=== PATIENT | female | born 1950 | race Caucasian/White ===

== ENCOUNTER 2021-11-07 08:57 | Emergency (ER) | payer OTHER ==
[~2021-11-07] VITALS: Ht 162.6 cm; Wt 95.3 kg
[2021-11-07 09:09] VITALS: BP 151/77
--- NOTE | 2021-11-07 09:15 | NUR ---
AT BEDSIDE FOR EVAL
[2021-11-07] MEDS ORDERED: HYDROCODONE/APAP 5/325MG TABLET PO ONE (09:30)
--- NOTE | 2021-11-07 09:30 | NUR ---
DIRECTOR OF CREATIVE SERVICES AT BEDSIDE FOR XRAY.
[2021-11-07] MEDS ORDERED: HYDROCODONE/APAP 5/325MG TABLET ONE (09:31)
--- NOTE | 2021-11-07 11:18 | NUR ---
Patient discharged to home in stable condition. Written and verbal after care instructions given. Patient verbalizes understanding of instruction.
== END 2021-11-07 11:18 | disposition home or self-care (01) ==
LOC: ER 09:00
DX: R07.89 Other chest pain (principal); M06.9 Rheumatoid arthritis, unspecified; E03.9 Hypothyroidism, unspecified; M79.7 Fibromyalgia; I10 Essential (primary) hypertension; K21.9 Gastro-esophageal reflux disease without esophagitis; Z90.49 Acquired absence of other specified parts of digestive tract; Z98.890 Other specified postprocedural states; Z88.2 Allergy status to sulfonamides
CPT/HCPCS: 71100-TC

== ENCOUNTER 2022-01-21 00:48 | Inpatient (IN) | payer OTHER ==
[~2022-01-21] VITALS: Ht 162.6 cm; Wt 97.5 kg
--- NOTE | 2022-01-21 00:58 | NUR ---
PT [id number]. C/O HAD SYNCOPAL EPISODE TODAY WHERE SHE FAINTED. PLACED IN BED 3 ON MONITOR AND PULSE OX. PT CONTINUOUSLY ASKING TO USE THE RESTROOM.
--- NOTE | 2022-01-21 01:33 | NUR ---
PT IN THE RESTROOM REQUESTING FOR MORE TIME.
[2022-01-21] MEDS ORDERED: MORPHINE SULFATE INJ 4 MG/ML DISP.SYRIN ONE (01:55)
[2022-01-21] MEDS ORDERED: ONDANSETRON HCL/PF 4 MG/2 ML VIAL ONE (01:55)
[2022-01-21] MEDS ORDERED: IV NS 0.9% 1,000 ML IV ONE (02:00)
[2022-01-21] MEDS ORDERED: ONDANSETRON HCL/PF 4 MG/2 ML VIAL IVP ONE (02:00)
[2022-01-21] MEDS ORDERED: MORPHINE SULFATE INJ 2 MG/ML DISP.SYRIN IV ONE (02:00)
--- NOTE | 2022-01-21 02:02 | NUR ---
PT BROUGHT TO CT
[2022-01-21 02:12] LABS: BASOPHILS % (AUTO) 0.2 % (0.0-2.0); HEMATOCRIT 43 % (33-45); HEMOGLOBIN 13.5 g/dL (11.5-14.8); LYMPHOCYTES # (AUTO) 1.3 K/uL (0.8-4.8); LYMPHOCYTES % (AUTO) 5.7 % (20.0-44.0); MEAN CORPUSCULAR HGB CONC 31 g/dl (31.0-36.0); MEAN CORPUSCULAR VOLUME 87 fL (82-100); MONOCYTES # (AUTO) 0.8 K/uL (0.1-1.30); MONOCYTES % (AUTO) 3.5 % (2.0-12.0); NEUTROPHILS # (AUTO) 20.1 K/uL (1.8-8.9); NEUTROPHILS % (AUTO) 90.6 % (43.0-81.0); PLATELET COUNT (AUTO) 593 K/uL (150-450); RED BLOOD CELL COUNT(AUTO) 4.95 MIL/uL (4.0-5.2); WHITE BLOOD COUNT (AUTO) 22.2 K/uL (4.3-11.0)
[2022-01-21 02:29] LABS: ALANINE AMINOTRANSFERASE 21 U/L (12-78); ALBUMIN 4.2 g/dL (3.4-5.0); ALKALINE PHOSPHATASE 151 U/L (46-116); ASPARTATE AMINOTRANSFERASE 18 U/L (15-37); BILIRUBIN,DIRECT 0.1 mg/dL (0.0-0.2); BILIRUBIN,TOTAL 0.4 mg/dL (0.2-1.0); CALCIUM, SERUM 9.8 mg/dL (8.5-10.1); CARBON DIOXIDE 24 mmol/L (21-32); CHLORIDE 100 mmol/L (98-107); CREATININE 1.9 mg/dL (0.6-1.3); GLUCOSE 189 mg/dL (74-106); POTASSIUM 4.3 mmol/L (3.5-5.1); SODIUM SERUM 138 mmol/L (136-145); TOTAL PROTEIN, SERUM 7.9 g/dL (6.4-8.2); UREA NITROGEN, BLOOD 31 mg/dL (7-18)
--- NOTE | 2022-01-21 02:44 | NUR ---
LACTIC ACID 4.0
[2022-01-21] MEDS ORDERED: CEFEPIME 1 GM VIAL ONE (03:12)
[2022-01-21] MEDS ORDERED: VANCOMYCIN 1 GM VIAL ONE (03:15)
[2022-01-21] MEDS ORDERED: IV NS 0.9% 1,000 ML BAG IV ONE (03:30)
[2022-01-21] MEDS ORDERED: VANCOMYCIN 1 GM in IV D5W 250 ML IV ONE (03:30)
[2022-01-21] MEDS ORDERED: CEFEPIME 1 GM in IV D5W 50 ML IV ONE (03:30)
--- NOTE | 2022-01-21 03:32 | NUR ---
LANDYID SWABBED, SENT TO LAB.
--- NOTE | 2022-01-21 04:21 | NUR ---
CALLED [facility] FOR IMAGING READ
[2022-01-21] MEDS ORDERED: CYCLOBENZAPRINE 10 MG TABLET PO ONE (04:30)
[2022-01-21] MEDS ORDERED: TDAP [DIPH/PERTUSSIS/TET] 0.5 ML VIAL IM ONE ×2 (04:30→04:35)
[2022-01-21] MEDS ORDERED: CYCLOBENZAPRINE 10 MG TABLET ONE (04:34)
[2022-01-21 05:26] LABS: BILIRUBIN,URINE NEGATIVE (NEGATIVE); COLOR,URINE YELLOW (YELLOW); LEUKOCYTE ESTERASE ,URINE NEGATIVE (NEGATIVE); NITRITE, URINE NEGATIVE (NEGATIVE); PH,URINE 5.5 (5.0-8.0); PROTEIN,URINE TRACE mg/dl (NEGATIVE); UGLUCOSE NEGATIVE (NEGATIVE); UROBILINOGEN,URINE 0.2 EU/dL (0.2)
[2022-01-21] MEDS ORDERED: ALPR0.5T8 PO (08:35)
[2022-01-21] MEDS ORDERED: LEVO50TA8 PO (08:35)
[2022-01-21] MEDS ORDERED: HYDR12.55 PO (08:35)
[2022-01-21] MEDS ORDERED: OXYC1TAB12 MT (08:35)
[2022-01-21] MEDS ORDERED: METH2.5T14 PO (08:35)
[2022-01-21] MEDS ORDERED: DULO60CA64 PO (08:35)
[2022-01-21] MEDS ORDERED: LISI20TA30 PO (08:35)
[2022-01-21] MEDS ORDERED: PANT40TA49 PO (08:37)
[2022-01-21] MEDS ORDERED: ATOR10TA PO (08:37)
[2022-01-21] MEDS ORDERED: Medication Not On Formulary EA (Oxycodone Hcl/Acetaminophen (Oxycodone-Apap 10-325 Mg Ta MT PRN (09:30)
[2022-01-21] MEDS ORDERED: oxyCODONE/APAP (5/325 MG) 1 UDTAB TABLET PO PRN (09:30)
[2022-01-21] MEDS ORDERED: DULOXETINE HCL 60 MG PO SCH (09:30)
[2022-01-21] MEDS ORDERED: ALPRAZOLAM 0.5 MG TABLET PO PRN (09:30)
[2022-01-21 09:31] LABS: MAGNESIUM 2.2 mg/dL (1.8-2.4); PHOSPHORUS 4.3 mg/dL (2.5-4.9)
[2022-01-21 09:39] LABS: THYROID STIMULATING HORMONE 1.227 uIU/mL (0.358-3.74)
--- NOTE | 2022-01-21 09:43 | NUR ---
BED GIVEN 111-1 NURSE IS STELLA
--- NOTE | 2022-01-21 10:06 | NUR ---
REPORT GIVEN TO AKIL BARROS FOR [facility]
--- NOTE | 2022-01-21 11:00 | NUR ---
RN NOTES RECEIVED PATIENT FROM ER DEPT, REPORT TAKEN FROM ELE BARROS. ADMITTING DX IS SYNCOPE, TARAN, UTI. PATIENT IS AWAKE, ALERT/ORIENTED X4. ON ROOM AIR, TOLERATING WELL WITH SATURATION OF 96%. IV ACCESS ON LEFT AC, PATENT AND INTACT, FLUSHES WELL. NO SIGNS OF INFILTRATION. PHOTOS OF WOUNDS DOCUMENTED AND PUT IN CHART. PLS REFER TO SKIN FLOWSHEET FOR SKIN ISSUES. ALL SAFETY MEASURES IMPLEMENTED: HOB ELEVATED, BED LOCKED AND IN LOWEST POSITION WITH SIDE RAILS UP X 2, CALL LIGHT WITHIN REACH. BED ALARM ON. WILL CONTINUE TO MONITOR AND ASSESS FOR ANY CHANGES DURING SHIFT.
[2022-01-21 12:00] VITALS: BP 106/47
[2022-01-21] MEDS ORDERED: Z GUARD REMEDY 4 OZ OINT TP PRN (12:00)
[2022-01-21] MEDS ORDERED: ONDANSETRON HCL/PF 4 MG/2 ML VIAL IVP PRN (12:00)
[2022-01-21] MEDS ORDERED: ACETAMINOPHEN 325 MG TABLET PO PRN (12:00)
[2022-01-21] MEDS ORDERED: MAGNESIUM HYDROXIDE 30 ML UDC PO PRN (12:00)
[2022-01-21] MEDS ORDERED: MAG HYDROX/AL HYDROX/SIMETH 30 ML UDC PO PRN (12:00)
[2022-01-21] MEDS ORDERED: LOPERAMIDE HCL (2 MG CAP) 2 MG CAPSULE PO PRN (12:00)
[2022-01-21] MEDS: IV NS 0.9% 1,000 ML IV PRN (12:30)
[2022-01-21 16:00] VITALS: BP 103/41
[2022-01-21] MEDS: ATORVASTATIN 10 MG TABLET PO SCH (17:17)
[2022-01-21] MEDS: DULOXETINE HCL 30 MG CAPSULE.DR PO SCH (17:18)
[2022-01-21] MEDS: MORPHINE SULFATE INJ 2 MG/ML DISP.SYRIN IV PRN (18:36)
--- NOTE | 2022-01-21 18:49 | NUR ---
RN CLOSING NOTES NO SIGNIFICANT CHANGES THROUGHOUT SHIFT, PATIENT REMAINS STABLE. PATIENT IS AWAKE, ALERT/ORIENTED X4. ON ROOM AIR, TOLERATING WELL WITH SATURATION OF 95%. IV ACCESS ON LEFT AC, PATENT AND INTACT, INFUSING NS @125 ML/HR NO SIGNS OF INFILTRATION. ALL DUE MEDS GIVEN ORDERED. ALL NEEDS ANTICIPATED. KEPT PATIENT CLEAN, DRY AND COMFORTABLE. ALL SAFETY MEASURES IMPLEMENTED: HOB ELEVATED, BED LOCKED AND IN LOWEST POSITION WITH SIDE RAILS UP X 2, CALL LIGHT WITHIN REACH. BED ALARM ON. WILL ENDORSE TO ONCOMING NURSE FOR CONTINUITY OF CARE.
--- NOTE | 2022-01-21 19:30 | NUR ---
RN OPENING NOTES RECEIVED PATIENT IN BED AWAKE, ALERT/ORIENTED X4 AND VERBALLY RESPONSIVE. ON ROOM AIR AND PT TOLERATED WELL. IV ACCESS ON LAC#20G INTACT AND PATENT. NO S/S OF INFILTRATIONS. NS RUNNING AT 125CC/HR. NO C/O PAIN OR DISCOMFORT. NO ACUTE DISTRESS. ALL SAFETY MEASURES IN PLACE. BED IN LOWEST POSITION AND LOCKED. SIDE RAILS UP X 2, BED ALARM ON. PLACE CALL LIGHT WITH IN REACH. WILL CONTINUE TO MONITOR
[2022-01-21 20:00] VITALS: BP 112/52
--- NOTE | 2022-01-21 21:15 | NUR ---
RN NOTES: PT C/O MILD HEADACHE, TYLENOL 325 MG 2 TAB GIVEN AND PT TOLERATED WELL. WILL CONTINUE TO MONITOR
--- NOTE | 2022-01-21 23:50 | NUR ---
RN NOTES: NOTED IV ACCESS LAC SIGHT LEAKING. INSERTED NEW SALINE LOCK ON LT WRIST#20G. INTACT AND PATENT. NO S/S OF INFILTRATIONS. WILL CONTINUE TO MONITOR
[2022-01-22] VITALS: BP 114/51
[2022-01-22] MEDS: MORPHINE SULFATE INJ 2 MG/ML DISP.SYRIN IV PRN ×2 (00:19→06:02)
--- NOTE | 2022-01-22 00:23 | NUR ---
RN NOTES: PT C/O SEVERE PAIN 8/10 PAIN SCALE ON RT THIGH. MORPHINE GIVEN PRN ORDERED AND PT TOLERATED WELL. WILL CONTINUE TO MONITOR
[2022-01-22] MEDS: IV NS 0.9% 1,000 ML IV PRN ×3 (00:38→18:32)
[2022-01-22 04:00] VITALS: BP 117/52
--- NOTE | 2022-01-22 06:09 | NUR ---
RN NOTES: PT C/O SEVERE PAIN, 8/10 PAIN SCALE ON RT THIGH. MORPHINE GIVEN PRN ORDERED AND PT TOLERATED WELL. WILL CONTINUE TO MONITOR
[2022-01-22 06:28] LABS: BASOPHILS % (AUTO) 0.2 % (0.0-2.0); EOSINOPHILS % (AUTO) 1.4 % (0.0-6.0); HEMATOCRIT 31 % (33-45); LYMPHOCYTES # (AUTO) 1.7 K/uL (0.8-4.8); LYMPHOCYTES % (AUTO) 18.4 % (20.0-44.0); MEAN CORPUSCULAR HGB CONC 32 g/dl (31.0-36.0); MEAN CORPUSCULAR VOLUME 88 fL (82-100); MONOCYTES # (AUTO) 0.6 K/uL (0.1-1.30); MONOCYTES % (AUTO) 6.4 % (2.0-12.0); NEUTROPHILS % (AUTO) 73.6 % (43.0-81.0); PLATELET COUNT (AUTO) 340 K/uL (150-450); RED BLOOD CELL COUNT(AUTO) 3.56 MIL/uL (4.0-5.2); WHITE BLOOD COUNT (AUTO) 9.5 K/uL (4.3-11.0)
--- NOTE | 2022-01-22 06:31 | NUR ---
RN CLOSING NOTES PATIENT IN BED AWAKE, ALERT/ORIENTED X4 AND VERBALLY RESPONSIVE. ON ROOM AIR, O2 SAT 98% AND PT TOLERATED WELL. IV ACCESS ON LAC#20G AND LT WRIST #20G INTACT AND PATENT. NO S/S OF INFILTRATIONS. NS RUNNING AT 125CC/HR. MORPHINE GIVEN PRN ORDERED. NO ACUTE/RESPIRATORY DISTRESS. ALL SAFETY MEASURES IN PLACE. BED IN LOWEST POSITION AND LOCKED. SIDE RAILS UP X 2, BED ALARM ON. PLACE CALL LIGHT WITH IN REACH. WILL ENDORSE TO MORNING SHIFT NURSE.
[2022-01-22 07:11] LABS: ALANINE AMINOTRANSFERASE 13 U/L (12-78); ALBUMIN 3.2 g/dL (3.4-5.0); ALKALINE PHOSPHATASE 101 U/L (46-116); ASPARTATE AMINOTRANSFERASE 11 U/L (15-37); BILIRUBIN,TOTAL 0.5 mg/dL (0.2-1.0); CALCIUM, SERUM 8.4 mg/dL (8.5-10.1); CARBON DIOXIDE 26 mmol/L (21-32); CHLORIDE 104 mmol/L (98-107); CREATININE 1.4 mg/dL (0.6-1.3); GLUCOSE 99 mg/dL (74-106); PHOSPHORUS 3.3 mg/dL (2.5-4.9); POTASSIUM 4.2 mmol/L (3.5-5.1); SODIUM SERUM 136 mmol/L (136-145); TOTAL PROTEIN, SERUM 6.4 g/dL (6.4-8.2); UREA NITROGEN, BLOOD 22 mg/dL (7-18)
--- NOTE | 2022-01-22 07:20 | NUR ---
RN OPENING NOTES RECEIVED PATIENT IN BED AWAKE, ALERT/ORIENTED X4 AND ABLE TO MAKE NEEDS KNOWN. ON ROOM AIR AND TOLERATED WELL. BREATHING EVEN AND UNLABORED. ON TELE MONITOR READING NSR WITH HR OF 85. IV ACCESS ON LAC#20G AND LEFT WRIST #20 INTACT AND PATENT, INFUSING NS AT 125 ML/HR. NO S/S OF INFILTRATIONS. NO C/O PAIN OR DISCOMFORT. NO ACUTE DISTRESS. ALL SAFETY MEASURES IN PLACE. BED IN LOWEST POSITION AND LOCKED. SIDE RAILS UP X 2, BED ALARM ON. PLACE CALL LIGHT WITH IN REACH. WILL CONTINUE TO MONITOR AND ASSESS FOR ANY CHANGES DURING SHIFT.
[2022-01-22] MEDS ORDERED: PANTOPRAZOLE 40 MG TABLET.DR PO SCH (07:30)
--- NOTE | 2022-01-22 07:51 | NUR ---
WOUND CARE CONSULT: PT PRESENTS WITH DRY ABRASION TO POSTERIOR SCALP AND RT UPPER ARM, DISCOLORATION TO RT SIDE OF FACE AND JAGGED LEFT GREAT TOENAIL, ALL PRESENT ON ADMISSION. RECOMMENDATIONS MADE FOR SKIN PROTECTION. DISCUSSED WITH NURSING STAFF. DPM CONSULT REQUESTED FROM DR HAMPAPUR. HEART IN AGREEMENT WITH PLAN OF CARE.
[2022-01-22 08:00] VITALS: BP 102/53
[2022-01-22] MEDS: LEVOTHYROXINE SODIUM 50 MCG TABLET PO SCH (08:59)
[2022-01-22] MEDS: PANTOPRAZOLE 40 MG TABLET.DR PO SCH (09:00)
[2022-01-22] MEDS: DULOXETINE HCL 30 MG CAPSULE.DR PO SCH ×2 (09:00→17:05)
[2022-01-22] MEDS: LISINOPRIL (20MG) 20 MG TABLET PO SCH (09:01)
[2022-01-22 10:12] LABS: IRON, SERUM 59 ug/dl (50-175); TOTAL IRON BINDING CAPACITY 340 ug/dl (250-450)
[2022-01-22 10:30] LABS: FERRITIN 25 ng/mL (8-388)
[2022-01-22 12:00] VITALS: BP 133/46
[2022-01-22 16:00] VITALS: BP 122/42
[2022-01-22] MEDS: ATORVASTATIN 10 MG TABLET PO SCH (17:05)
--- NOTE | 2022-01-22 18:55 | NUR ---
RN CLOSING NOTES NO SIGNIFICANT CHANGES DURING SHIFT, PATIENT REMAINS IN STABLE CONDITION. PATIENT IN BED AWAKE, ALERT/ORIENTED X4 AND ABLE TO MAKE NEEDS KNOWN. ON ROOM AIR AND TOLERATED WELL. BREATHING EVEN AND UNLABORED. IV ACCESS ON LAC#20G AND LEFT WRIST #20 INTACT AND PATENT, INFUSING NS AT 125 ML/HR. NO S/S OF INFILTRATIONS. ALL DUE MEDS GIVEN ORDERED. ALL NEEDS ANTICIPATED. KEPT PATIENT CLEAN DRY AND COMFORTABLE. ALL SAFETY MEASURES IN PLACE. BED IN LOWEST POSITION AND LOCKED. SIDE RAILS UP X 2, BED ALARM ON. PLACE CALL LIGHT WITH IN REACH. WILL ENDORSE TO ONCOMING NURSE FOR CONTINUITY OF CARE.
--- NOTE | 2022-01-22 19:35 | NUR ---
RN OPENING NOTES RECEIVED PATIENT IN BED AWAKE, ALERT/ORIENTED X4 AND VERBALLY RESPONSIVE. ON ROOM AIR AND PT TOLERATED WELL. IV ACCESS ON LAC#20G AND LT WRIST#20G INTACT AND PATENT. NO S/S OF INFILTRATIONS. NS RUNNING AT 125CC/HR. NO C/O PAIN OR DISCOMFORT. NO ACUTE DISTRESS. ALL SAFETY MEASURES IN PLACE. BED IN LOWEST POSITION AND LOCKED. SIDE RAILS UP X 2, BED ALARM ON. PLACE CALL LIGHT WITH IN REACH. WILL CONTINUE TO MONITOR
[2022-01-22 20:00] VITALS: BP 126/58
[2022-01-23] VITALS: BP 121/63
[2022-01-23] MEDS: IV NS 0.9% 1,000 ML IV PRN (02:29)
[2022-01-23 04:00] VITALS: BP 136/67
--- NOTE | 2022-01-23 06:34 | NUR ---
RN CLOSING NOTES PATIENT IN BED AWAKE, ALERT/ORIENTED X4 AND VERBALLY RESPONSIVE. ON ROOM AIR, O2 SAT 97% AND PT TOLERATED WELL. IV ACCESS ON LAC#20G AND LT WRIST #20G INTACT AND PATENT. NO S/S OF INFILTRATIONS. NS RUNNING AT 125CC/HR. NO C/O PAIN OR DISCOMFORT. NO ACUTE DISTRESS. ABLE TO USE THE COMMODE WITH ASSIST. ALL SAFETY MEASURES IN PLACE. BED IN LOWEST POSITION AND LOCKED. SIDE RAILS UP X 2, BED ALARM ON. PLACE CALL LIGHT WITH IN REACH. WILL ENDORSE TO MORNING SHIFT NURSE.
[2022-01-23 07:02] LABS: ALBUMIN 2.9 g/dL (3.4-5.0); BILIRUBIN,TOTAL 0.3 mg/dL (0.2-1.0); CALCIUM, SERUM 8.4 mg/dL (8.5-10.1); MAGNESIUM 2.1 mg/dL (1.8-2.4); POTASSIUM 4.2 mmol/L (3.5-5.1)
[2022-01-23 07:25] LABS: BASOPHILS % (AUTO) 0.4 % (0.0-2.0); EOSINOPHILS % (AUTO) 3.9 % (0.0-6.0); HEMATOCRIT 27 % (33-45); HEMOGLOBIN 8.9 g/dL (11.5-14.8); LYMPHOCYTES # (AUTO) 1.5 K/uL (0.8-4.8); LYMPHOCYTES % (AUTO) 24.3 % (20.0-44.0); MEAN CORPUSCULAR HGB CONC 33 g/dl (31.0-36.0); MEAN CORPUSCULAR VOLUME 87 fL (82-100); MONOCYTES # (AUTO) 0.4 K/uL (0.1-1.30); MONOCYTES % (AUTO) 6.3 % (2.0-12.0); NEUTROPHILS # (AUTO) 4.2 K/uL (1.8-8.9); NEUTROPHILS % (AUTO) 65.1 % (43.0-81.0); PLATELET COUNT (AUTO) 282 K/uL (150-450); RED BLOOD CELL COUNT(AUTO) 3.15 MIL/uL (4.0-5.2); WHITE BLOOD COUNT (AUTO) 6.4 K/uL (4.3-11.0)
[2022-01-23] MEDS: LEVOTHYROXINE SODIUM 50 MCG TABLET PO SCH (07:37)
[2022-01-23] MEDS: PANTOPRAZOLE 40 MG TABLET.DR PO SCH (07:38)
[2022-01-23 08:00] VITALS: BP 138/64
[2022-01-23] MEDS: DULOXETINE HCL 30 MG CAPSULE.DR PO SCH (09:41)
[2022-01-23] MEDS: LISINOPRIL (20MG) 20 MG TABLET PO SCH (09:42)
[2022-01-23 12:00] VITALS: BP 136/68
[2022-01-23 16:00] VITALS: BP 115/70
[2022-01-24] MEDS ORDERED: METHOTREXATE SODIUM (2.5MG) 2.5 MG TABLET PO SCH (09:00)
== END 2022-01-23 17:45 | disposition home or self-care (01) | DRG 640 ==
LOC: ER 00:50 → TRANSITION 06:52 → TELE1 09:55
PROVIDERS: ADMIT Internal Medicine; ATTEND Internal Medicine
DX: E86.0 Dehydration (principal); N17.0 Acute kidney failure with tubular necrosis; E87.2 Acidosis; S01.01XA Laceration without foreign body of scalp, initial encounter; K52.9 Noninfective gastroenteritis and colitis, unspecified; K21.9 Gastro-esophageal reflux disease without esophagitis; Z20.822 Contact with and (suspected) exposure to COVID-19; W18.12XA Fall from or off toilet with subsequent striking against object, initial encounter; Y92.002 Bathroom of unspecified non-institutional (private) residence as the place of occurrence of the external cause; E78.5 Hyperlipidemia, unspecified; I10 Essential (primary) hypertension; E78.00 Pure hypercholesterolemia, unspecified; I48.91 Unspecified atrial fibrillation; M06.9 Rheumatoid arthritis, unspecified; Z90.49 Acquired absence of other specified parts of digestive tract; Z88.2 Allergy status to sulfonamides; E03.9 Hypothyroidism, unspecified; L85.3 Xerosis cutis; M25.559 Pain in unspecified hip; L60.3 Nail dystrophy; M79.672 Pain in left foot; M79.671 Pain in right foot; R55 Syncope and collapse
CPT/HCPCS: 36415; 70450-TC; 71045-TC; 72125-TC; 72170-TC; 80048-TC; 80053-TC; 80061-TC; 80076-TC; 82728-TC; 83540-TC; 83605-TC; 83735-TC; 84100-TC; 84439-TC; 84443-TC; 84484-TC; 85025-TC; 87040-TC; 87086-TC; 90715; 93307-TC; 97116-TC; 97530-TC; C9803; G0378; J0692; J2270; J2405; J3370; J7030; J7050; J7060; J8610